=== PATIENT | female | born 1940 | race Caucasian/White ===

== ENCOUNTER 2016-12-02 21:39 | Emergency (ER) | payer OTHER ==
--- NOTE | 2016-12-02 22:45 | PROVIDER DOCUMENTATION ---
HPI-Abdominal Pain/GI Problem - General Chief Complaint: Abdominal Pain Stated Complaint: ABD PAIN/FLANK PAIN Time Seen by Provider: 12/02/16 22:41 Source: patient Allergies/Adverse Reactions: Patient Allergies Allergy/AdvReac Type Severity Reaction Status Date / Time No Known Allergies Allergy Verified 12/02/16 21:53 Home Medications: Home Medication List Medication Instructions Recorded Confirmed Last Taken Type Hydrocodone/Acetaminophen [Lula 1 dose PO TID 12/02/16 12/02/16 Unknown History 10-325 Tablet] Letrozole 2.5 mg PO DAILY 12/02/16 12/02/16 Unknown History Losartan/Hydrochlorothiazide 1 dose PO DAILY 12/02/16 12/02/16 Unknown History [Losartan-Hctz 100-25 mg Tab] Potassium Chloride E.r. [Micro-K] 10 meq PO DAILY 12/02/16 12/02/16 Unknown History Hydrocodone/APAP 7.5 mg/325 mg 1 each PO Q6H PRN PRN #14 tablet 12/03/16 Unknown Rx [Lula-7.5] Ketorolac [Toradol] 10 mg PO Q6H PRN PRN #6 tablet 12/03/16 Unknown Rx Ondansetron [Zofran] 4 mg PO Q6H PRN PRN #20 tablet 12/03/16 Unknown Rx - History of Present Illness-ABD Nature of Presenting Problems: 76 yof c/o abd pain, cramping after dinner and hasn't stopped since. Pt also has right flank pain that is getting worse at this time also. Pt has some nausea but no vomiting, Denies any urinary symptoms. Pt denies any diarrhea or constipation. Abdominal Pain Onset Location: reports: flank Pain Radiation: reports: RLQ, flank Quality of Pain: reports: sharp Severity in ED: reports: moderate Onset/Duration: reports: 2 days ago Timing: reports: still present, getting worse Activities at Onset: reports: none Exposure to sick contacts?: No Modifying Factors: improves with: nothing Associated Symptoms: reports: nausea, vomiting Last BM: this morning Dark Stools Present?: reports: none noticed Rectal Bleeding: reports: none # of Diarrhea Episodes: 0 Rectal Pain: reports: none # of Vomiting Episodes: 0 Emesis Description: reports: none Bruising or Bleeding Gums?: No Similar Symptoms Previously?: No Review of Systems - Adult - REVIEW OF SYSTEMS - ADULT Constitutional: reports: see HPI. denies: no symptoms reported, chills, fever, fatique, night sweats, weight gain, weight loss, other Eyes: reports: no symptoms reported. denies: see HPI, discharge, dry eyes, decreased vision, blurred vision, double vision, eye pain, redness, other Ears, Nose, Mouth & Throat: reports: no symptoms reported. denies: see HPI, ear discharge, ear pain, hearing loss, tinnitus, epistaxis, sinus problem, nose pain, loose teeth, mouth/dental pain, mouth swelling, hoarseness, throat pain, throat swelling, other Cardiovascular: reports: no symptoms reported. denies: see HPI, chest pain, edema, heart murmur, irregular heart rate, orthopnea, palpitations, poor circulation, PND, syncope, other Respiratory: reports: no symptoms reported. denies: see HPI, chronic cough, cough, dyspnea on exertion, excessive sputum production, hemoptysis, pleurisy, shortness of breath, wheezing, other Gastrointestinal: reports: see HPI, abdominal pain, nausea. denies: no symptoms reported, hematemesis, constipation, diarrhea, difficulty swallowing, frequent heartburn, poor appetite, rectal bleeding, vomiting, other Genitourinary: reports: see HPI. denies: no symptoms reported, dysuria, discharge, frequency, flank pain, frequent UTI's, hematuria, hesitency, incontinence, urinary retention, urgency, other Integumentary: reports: no symptoms reported. denies: see HPI, hives, hair loss , itching, mole changes, nail changes, rash, skin sores/ulcer, skin thickening, other Neurological: reports: no symptoms reported. denies: see HPI, ataxia, dizziness /vertigo, headache/migraines, loss of balance, numbness, paresthesia, seizure, slurred speech, syncope, tremors, other Psychiatric: reports: no symptoms reported. denies: see HPI, anxiety, anti- depressant use, alcohol/drug dependence, depression, emotional problems, insomnia, panic attacks, suicidal thoughts, other All Other Systems: Reviewed and Negative Past History - Adult - PAST MEDICAL HISTORY-ADULT Review of Records: reports: Old Records Reviewed, Nursing Assessment Review, Medications Reviewed, Social history reviewed & non-contributory. Physical Exam-General - PHYSICAL EXAM-ADULT Initial Vital Signs Reviewed: Yes - CONSTITUTIONAL General Appearance: appears well, alert, mild distress (due to pain.) - EYES Eyes: PERRL/EOMI, pink conjunctivae. negative: fundi clear, no AV nicking, anisocoria, conjuctival exudate, EOM palsy, meningismus, pale conjunctivae, photophobia, sclera injected, scleral icterus, subconjunctival hemorrhage, sunken eyes, other - HEAD, EARS, NOSE, MOUTH & THROAT HENMT: normocephalic/atraumatic, moist mucous membranes, normal ENT inspection, TMs normal, pharynx normal. negative: angioedema, dental decay, hearing deficit , pharyngeal erythema, tonsillar exudate, TM abnormal, TM obscurred by cerumen, frontal tenderness, maxillary tenderness, other - NECK Neck: non-tender, full range of motion, supple, normal inspection. negative: Brudzinski's sign, carotid bruit, C-spine tenderness, limited range of motion, lymphadenopathy, meningismus, trachial deviation, tender lateral, tender midline , thyromegaly, other - RESPIRATORY Respiratory: chest non-tender, lungs clear, normal breath sounds, no pleuratic chest pain, no respiratory distress, no accessory muscle use. negative: respiratory distress, decreased breath sounds, accessory muscle use, crackles, rales, rhonchi, stridor, wheezing, dull on percussion, prolonged expiration, pain on inspiration, plerual rub, retractions, splinting, decreased rate, increased rate, crepitus, other - CARDIOVASCULAR Cardiovascular: normal peripheral pulses, regular rate, rhythm, no edema, no gallop, no JVD, no murmur. negative: JVD, bradycardia, tachycardia, diastolic murmur, systolic murmur, gallop/S3, gallop/S4, extra beats, friction rub, irregularly irregular, PMI displaced laterally, other - CHEST (BREASTS) Chest/Breast: deferred - GASTROINTESTINAL (ABDOMEN) Abdominal Exam: normal bowel sounds, soft, no organomegaly, no pulsatile mass, tenderness. negative: non tender, abdominal bruit, abnormal bowel sounds, distended, guarding, rigid, rebound, hernia, mass, hepatomegaly, spleenomegaly, McBurney's point tenderness, Dumont's sign, obturator sign, prominent aortic pulsations, psoas, Rovsing's sign, other - GENITOURINARY Female Genitalia/Pelvic Exam: deferred - LYMPHATIC Lymphatic: no adenopathy - MUSCULOSKELETAL Back Exam: normal inspection, no vertebral tenderness, CVA tenderness. negative : no CVA tenderness, decreased range of motion, ecchymosis, kyphosis, lordosis, muscle spasm, scoliosis, swelling, vertebral tenderness, other Extremity: normal range of motion, non-tender, normal gait, normal inspection. negative: no pedal edema, no calf tenderness, normal capillary refill, pelvis stable, abnormal NV exam, calf tenderness, deformity, erythema, inflammation, joint effusion, pulse deficit, pedal edema, slow capillary refill, swelling, tenderness, other - SKIN Integumentary: normal color, normal turgor, warm/dry - NEUROLOGIC Neurologic: grossly normal - PSYCHIATRIC Psych/Mental Status: oriented x 3 Progress - PLAN OF CARE/RESULTS Progress/Plan/Lab Results: Laboratory Tests 12/02/16 12/02/16 12/02/16 22:30 22:40 22:40 WBC 6.48 RBC 3.58 L Hgb 11.6 L Hct 34.8 L MCV 97.2 MCH 32.4 H MCHC 33.3 RDW Std Deviation 13.1 Plt Count 244 MPV 8.4 Immature Gran % (Auto) 0.2 Neut % (Auto) 61.0 Lymph % (Auto) 24.2 [place] % (Auto) 11.1 H Eos % (Auto) 3.2 Baso % (Auto) 0.3 Immature Gran # (Auto) 0.01 Neut # (Auto) 3.95 Lymph # (Auto) 1.57 [place] # (Auto) 0.72 H Eos # (Auto) 0.21 Baso # (Auto) 0.02 Sodium 137 Potassium 3.7 Chloride 100 Carbon Dioxide 25 Anion Gap 12 BUN 20 Creatinine 0.8 Estimated GFR/1.73 m2 > 60 BUN/Creatinine Ratio 25 Glucose 125 H Calculated Osmolality 278 Calcium 9.8 Total Bilirubin 0.20 AST 26 ALT 28 Alkaline Phosphatase 74 Total Protein 6.9 Albumin 4.2 Globulin 3.0 Albumin/Globulin Ratio 2.0 Amylase 83 Lipase 40 Urine Source CLEAN CATCH Urine Color YELLOW Urine Clarity CLEAR Urine pH 5.0 Ur Specific [place] 1.020 Urine Protein TRACE A Urine Ketones NEGATIVE Urine Blood 3+ A Urine Nitrite NEGATIVE Urine Bilirubin NEGATIVE Urine Urobilinogen NORMAL Urine Microscopic RBC 20-40 A Urine WBC 2+ A Urine Microscopic WBC 10-20 A Ur Epithelial Cells <10 Urine Bacteria 2+ Urine Glucose NEGATIVE Orders Category Date Time Status NPO Diet 12/02/16 21:56 Active RENAL STONE SEARCH [CT] Stat Exams 12/02/16 22:44 Taken AMYLASE [CHEM] Stat Lab 12/02/16 22:40 Completed CBC WITH ELECTRONIC DIFF [HEME] Stat Lab 12/02/16 22:40 Completed COMPREHENSIVE METABOLIC PANEL [CHEM] Stat Lab 12/02/16 22:40 Completed LIPASE [CHEM] Stat Lab 12/02/16 22:[address] W/POSS RFLX CULT [URINALYSIS] Stat Lab 12/02/16 22:30 Completed URINE CULTURE [RM] Routine Lab 12/02/16 23:24 Ordered Ketorolac [Toradol] Med 12/02/16 23:18 Discontinued 60 mg IM NOW ONE Vital Signs Temp Pulse Resp BP Pulse Ox 12/02/16 21:49 97.2 F L 100 H 18 151/80 98 No Known Allergies Allergy (Verified 12/02/16 21:53) Hydrocodone/Acetaminophen [Lula 10-325 Tablet] 1 dose PO TID 12/02/16 Letrozole 2.5 mg PO DAILY 12/02/16 Losartan/Hydrochlorothiazide [Losartan-Hctz 100-25 mg Tab] 1 dose PO DAILY 12/02 Potassium Chloride E.r. [Micro-K] 10 meq PO DAILY 12/02/16 Hydrocodone/APAP 7.5 mg/325 mg [Lula-7.5] 1 each PO Q6H PRN PRN #14 tablet Ketorolac [Toradol] 10 mg PO Q6H PRN PRN #6 tablet 12/03/16 Ondansetron [Zofran] 4 mg PO Q6H PRN PRN #20 tablet 12/03/16 Dietary Diet NPO Start SatDec 03 2155 Laboratory 12/02/16 12/02/16 12/02/16 22:40 22:40 22:30 WBC 6.48 RBC 3.58 L Hgb 11.6 L Hct 34.8 L MCV 97.2 MCH 32.4 H MCHC 33.3 RDW Std Deviation 13.1 Plt Count 244 MPV 8.4 Immature Gran % (Auto) 0.2 Neut % (Auto) 61.0 Lymph % (Auto) 24.2 [place] % (Auto) 11.1 H Eos % (Auto) 3.2 Baso % (Auto) 0.3 Immature Gran # (Auto) 0.01 Neut # (Auto) 3.95 Lymph # (Auto) 1.57 [place] # (Auto) 0.72 H Eos # (Auto) 0.21 Baso # (Auto) 0.02 Sodium 137 Potassium 3.7 Chloride 100 Carbon Dioxide 25 Anion Gap 12 BUN 20 Creatinine 0.8 Estimated GFR/1.73 m2 > 60 BUN/Creatinine Ratio 25 Glucose 125 H Calculated Osmolality 278 Calcium 9.8 Total Bilirubin 0.20 AST 26 ALT 28 Alkaline Phosphatase 74 Total Protein 6.9 Albumin 4.2 Globulin 3.0 Albumin/Globulin Ratio 2.0 Amylase 83 Lipase 40 Urine Source CLEAN CATCH Urine Color YELLOW Urine Clarity CLEAR Urine pH 5.0 Ur Specific [place] 1.020 Urine Protein TRACE A Urine Ketones NEGATIVE Urine Blood 3+ A Urine Nitrite NEGATIVE Urine Bilirubin NEGATIVE Urine Urobilinogen NORMAL Urine Microscopic RBC 20-40 A Urine WBC 2+ A Urine Microscopic WBC 10-20 A Ur Epithelial Cells <10 Urine Bacteria 2+ Urine Glucose NEGATIVE - CT/MRI 1 CT Study: Renal Stone Impression: Abnormal (2 mm stone with hydronephrosis per radiologist) Departure - Departure Time of Disposition Order: 02:02 DIAGNOSIS: Kidney stone on right side Disposition: HOME 01 Certified Medical Emergency: Emergent Condition: Stable Additional Instructions: ED Follow Up Instructions: You have been treated by a care provider in the Emergency Department. These instructions are being provided to you so you can have an understanding of how to care for yourself upon discharge. Upon discharge from the Emergency Department, you are responsible for making arrangements for follow-up care by a physician of your choice. Take all prescribed medications as directed. Return to the Emergency Department immediately for any new or worsening symptoms. You may call the Physician Referral phone number at [phone] to obtain a list of Physicians who are taking new patients. Prescriptions: Hydrocodone/APAP 7.5 mg/325 mg [Lula-7.5] 1 each PO Q6H PRN PRN #14 tablet PRN Reason: Pain Ketorolac [Toradol] 10 mg PO Q6H PRN PRN #6 tablet PRN Reason: Pain Ondansetron [Zofran] 4 mg PO Q6H PRN PRN #20 tablet PRN Reason: Nausea Referrals: Xu Perez MD [Primary Care Provider] - Forms: Return to School/Parent Work Instructions: Kidney Stones, [id number] Attestation - Physician/ HARSHAD Attestation Patient care was provided by Advanced Practice Provider:: Yes Advanced Practice Provider:: João Abel Advanced Practice Provider documentation review:: The Mid-level provider documentation, treatment plan and medical decision making was reviewed by the physician who agrees with all treatment and medical decision making by the MLP. Physician Attestation - Physician Attestation I, the provider, attest to the following statement:: João Abel Physician documentation Attestation:: This documentation recorded by the scribe accurately reflects the service I personally performed and the decisions made by me.
[2016-12-02 22:53] LABS: MANUAL DIFF NEEDED? NO
[2016-12-02 22:54] LABS: URINE SOURCE CLEAN CATCH
[2016-12-02 23:05] LABS: BASO% 0.3 % (0.0-0.8); EOS# 0.21 X1000 (0.0-0.7); EOS% 3.2 % (0.0-10.0); HEMATOCRIT 34.8 % (37.0-47.0); HEMOGLOBIN 11.6 g/dL (12.0-16.0); IMM GRAN# 0.01 X1000 (0.0-0.04); IMM GRAN% 0.2 % (0.0-0.5); LYMPH# 1.57 X1000 (1.2-3.4); LYMPH% 24.2 % (20.5-51.1); MCH 32.4 PG (27-31); MCHC 33.3 g/dL (33-37); MCV 97.2 FL (81-99); MONO# 0.72 X1000 (0.11-0.59); MONO% 11.1 % (1.7-9.3); MPV 8.4 FL (7.4-10.4); PLT 244 X1000 (130-400); RBC 3.58 XMIL (4.2-5.4)
[2016-12-02] MEDS ORDERED: TORADOL IM ONE (23:18)
[2016-12-02 23:21] LABS: BILIRUBIN URINE NEGATIVE (NEGATIVE); BLOOD URINE 3+ (NEGATIVE); CLARITY CLEAR (CLEAR); COLOR YELLOW; GLUCOSE URINE NEGATIVE (NEGATIVE); LEUKOCYTES URINE 2+ (NEGATIVE); NITRITE URINE NEGATIVE (NEGATIVE); PROTEIN URINE TRACE mg/dL (NEGATIVE); UROBILINOGEN URINE NORMAL
[2016-12-02 23:21] LABS: AGAP 12; ALBUMIN 4.2 g/dL (3.5-5.0); ALKALINE PHOSPHATASE 74 U/L (32-104); AMYLASE 83 U/L (20-200); BUN 20 mg/dL (8-22); CALCIUM 9.8 mg/dL (8.8-10.2); CHLORIDE 100 mmol/L (98-107); COSMO 278; GOT 26 U/L (10-30); GPT 28 U/L (10-36); LIPASE 40 U/L (13-60); POTASSIUM 3.7 mmol/L (3.5-5.1); SODIUM 137 mmol/L (136-145); TCO2 25 mmol/L (25-35); TOTAL PROTEIN 6.9 g/dL (6.3-8.3)
[2016-12-02 23:23] LABS: URINE CULTURE PL NEEDED? YES; URINE EPITHELIAL CELLS <10 /HPF (<10); URINE RBC 20-40 /HPF (<10)
[2016-12-03] MEDS ORDERED: ZOFRAN ODT PO ONE (02:21)
[2016-12-03] MEDS ORDERED: NORCO-7.5 PO ONE (02:21)
[2016-12-03 02:36] VITALS: BP 142/87
--- NOTE | 2016-12-03 11:35 | Diag Imaging Result Document ---
PROCEDURE NAME: RENAL STONE SEARCH - 12/02/2016 CT RENAL STONE SEARCH WITHOUT CONTRAST: TECHNIQUE: A postreduction protocol what used. No comparison exam. FINDINGS: There is a 2-3 mm stone at the right ureterovesical junction. There is associated mild to moderate right hydronephrosis. There are small number of nonobstructing stones in the bilateral kidneys, the largest of which is located at the mid left kidney and measures 5-6 mm. There is no evidence of bowel obstruction. The appendix is unremarkable. There is uncomplicated colonic diverticulosis, most extensive at the sigmoid. There is no free air. There are no calcified gallstones seen. There are some degenerative changes of lower lumbar facets noted. IMPRESSION: 1. A 2-3 mm stone at right ureterovesical junction with mild to moderate right hydronephrosis. Nonobstructing stones in bilateral kidneys. 2. No bowel obstruction. Unremarkable appendix. Uncomplicated colonic diverticulosis. 3. Degenerative changes of lower lumbar facets noted. The on-call radiologist provided preliminary results at 11:27 p.m. on 12/02/2016.
== END 2016-12-03 02:35 | disposition home or self-care (01) ==
LOC: P.ED 21:39
DX: N13.2 Hydronephrosis with renal and ureteral calculous obstruction (principal); M47.9 Spondylosis, unspecified; R10.9 Unspecified abdominal pain; R10.31 Right lower quadrant pain; R11.2 Nausea with vomiting, unspecified; Z79.899 Other long term (current) drug therapy
CPT/HCPCS: 74176; 80053; 81001; 82150; 83690; 85025; 87088; 96372; J1885